=== PATIENT | female | born 2000 | race Caucasian/White ===

== ENCOUNTER 2021-07-29 17:01 | Emergency (ER) | payer OTHER ==
[2021-07-29] MEDS ORDERED: Sodium Chloride 0.9% 10 ML Syringe FLUSH PRN (17:26)
[2021-07-29] MEDS ORDERED: Ondansetron 4 MG/2 ML SDV IVPUSH ONE (17:29)
[2021-07-29] MEDS ORDERED: Sodium Chloride 0.9% 1,000 ML IV ONE (17:29)
[2021-07-29] MEDS ORDERED: HYDROmorphone 0.5 MG/0.5 ML Syringe IVPUSH ONE ×2 (17:29→18:29)
[2021-07-29] MEDS ORDERED: Iopamidol 612 MG/ML 100 ML Bottle IVPUSH ONE (18:45)
== END 2021-07-29 20:31 | disposition home or self-care (01) ==
LOC: JD.ED 17:01
DX: R10.30 Lower abdominal pain, unspecified (principal); R10.2 Pelvic and perineal pain
CPT/HCPCS: 36415; 74177; 76830; 80053; 84703; 85025; 86140; 96374; 96375; 96376; 99284; J1170; J2405; J7030; Q9967; 99285

== ENCOUNTER 2021-11-13 01:42 | Emergency (ER) | payer OTHER ==
[2021-11-13] MEDS ORDERED: Lactated Ringers 1,000 ML IV ONE (03:03)
[2021-11-13] MEDS ORDERED: Ondansetron 4 MG/2 ML SDV IVPUSH ONE (03:04)
[2021-11-13] MEDS ORDERED: fentaNYL 100 MCG/2 ML SDV IVPUSH ONE ×2 (03:04→04:58)
[2021-11-13 03:43] LABS: ESTIMATED GFR > 60 mL/min (>60)
== END 2021-11-13 07:33 | disposition home or self-care (01) ==
LOC: JD.ED 01:42
DX: N39.0 Urinary tract infection, site not specified (principal)
CPT/HCPCS: 36415; 76705; 80053; 81001; 81025; 83690; 85025; 87086; 87088; 87186; 96361; 96374; 96375; 96376; 99284; J2405; J3010; J7120; 99283

== ENCOUNTER 2021-11-14 14:44 | Emergency (ER) | payer OTHER ==
[2021-11-14] MEDS ORDERED: fentaNYL 100 MCG/2 ML SDV IVPUSH ONE (16:06)
[2021-11-14] MEDS ORDERED: Lactated Ringers 1,000 ML IV SCH (16:15)
[2021-11-14 16:48] LABS: ESTIMATED GFR > 60 mL/min (>60)
== END 2021-11-14 18:49 ==
LOC: JD.ED 14:44
DX: K83.1 Obstruction of bile duct (principal); Z20.822 Contact with and (suspected) exposure to COVID-19
CPT/HCPCS: 36415; 80053; 82248; 83690; 85025; 87635; 96374; 99284; J3010; J7120; 99283; U0002